=== PATIENT | female | born 1960 | race Caucasian/White ===

== ENCOUNTER 2016-11-27 20:40 | Emergency (ER) | payer OTHER ==
[~2016-11-27] VITALS: Ht 162.6 cm; Wt 84.3 kg
[~2016-11-27 20:40] MED LIST: CELE20TA PO; CETI10 PO; FLUT1SPR9 EACH NARE; MOBI7.5T PO; OMEP20CA5 PO
[2016-11-27 20:52] VITALS: BP 133/79; PULSE 94; RESP 18; TEMP 99.3; O2SAT 95
[2016-11-27 22:43] LABS: EOSINOPHIL % 0.2 % (0.0-4.0); HEMATOCRIT 43.4 % (35.0-46.0); HEMO FLAGS DIFF FINAL; LYMPH % 8.3 % (9.0-44.0); LYMPHOCYTE # 0.6 TH/MM3 (1.0-4.8); MEAN CELL VOLUME 87.1 FL (80.0-100.0); MEAN CORPUSCULAR HEMOGLOBIN 29.2 PG (27.0-34.0); MEAN CORPUSCULAR HGB CONC 33.5 % (32.0-36.0); MONO % 3.3 % (0.0-8.0); NEUT % 88.2 % (16.0-70.0); PLATELET COUNT 207 TH/MM3 (150-450); RED BLOOD COUNT 4.99 MIL/MM3 (4.00-5.30); RED CELL DISTRIBUTION WIDTH 13.4 % (11.6-17.2); WHITE BLOOD COUNT 6.8 TH/MM3 (4.0-11.0)
[2016-11-27] MEDS ORDERED: SODIUM CHLOR 0.9% 1000 ML INJ 1,000 ML IV ONE (22:45)
[2016-11-27] MEDS ORDERED: ONDANSETRON HCL 4 MG/2 ML VIAL IV PUSH ONE (22:45)
[2016-11-27 22:53] VITALS: BP 158/70; PULSE 82; RESP 20; O2SAT 96
[2016-11-27 22:55] VITALS: BP 158/70; PULSE 78; RESP 20; TEMP 100.2; O2SAT 98
[2016-11-27 22:58] LABS: CHLORIDE 107 MEQ/L (98-107); POTASSIUM 3.2 MEQ/L (3.5-5.1); SODIUM (NA) 140 MEQ/L (136-145)
[2016-11-27 23:02] LABS: ANION GAP 5 MEQ/L (5-15); BICARBONATE 27.6 MEQ/L (21.0-32.0); BLOOD UREA NITROGEN 9 MG/DL (7-18)
[2016-11-27] MEDS ORDERED: CETI10CH CHEW (23:03)
[2016-11-27] MEDS ORDERED: TRAM50TA PO (23:03)
[2016-11-27] MEDS ORDERED: CITA20TA4 PO (23:03)
[2016-11-27] MEDS ORDERED: OMEP20TA PO (23:03)
[2016-11-27] MEDS ORDERED: NAPR-701 PO (23:03)
[2016-11-27 23:05] LABS: ALT (GPT) 44 U/L (10-53); AST (GOT) 30 U/L (15-37); GLOMERULAR FILTRATION RATE 76 ML/MIN (>89)
[2016-11-27 23:07] LABS: TOTAL BILIRUBIN ADULT 0.9 MG/DL (0.2-1.0)
[2016-11-27 23:08] LABS: ALKALINE PHOSPHATASE 54 U/L (45-117)
--- NOTE | 2016-11-27 23:11 | PD ---
HPI Chief Complaint: GI Complaint Time Seen by Provider: 22:41 Travel History International Travel<30 days: No Contact w/Intl Traveler<30days: No Traveled to known affect area: No History of Present Illness HPI 56-year-old female presents to the emergency department for complaint of nausea vomiting abdominal pain and diarrhea since approximately 2 AM on Saturday morning. No hematemesis no coffee-ground emesis no melena hematochezia. There is asymptomatic. Patient denies any known dietary indiscretion well ingestion or foreign travel. No coworkers are ill. 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 Patient's had no fever chills. Patient states that abdominal discomfort associated with diarrhea. Patient is unable to identify exacerbating or alleviating factors. PFSH Past Medical History Narrative Medical Arthritis asthma diverticulosis depression GERD colonoscopy hysterectomy; no tobacco use; nursing notes reviewed Arthritis: Yes (OSTEO) Asthma: Yes ( A CHILD) Depression: Yes Diminished Hearing: No GERD: Yes Tetanus Vaccination: Unknown ?: Not LMP: MENOPAUSAL Menopausal: Yes : 2 Para: 2 Past Surgical History Hysterectomy: Yes (PARTIAL ) Social History Alcohol Use: Yes (SOCIALLY) Tobacco Use: No Substance Use: No Allergies-Medications (Allergen,Severity, Reaction): Coded Allergies: No Known Allergies (Verified , 11/27/16) Reported Meds & Prescriptions Reported Meds & Active Scripts Active Reported Citalopram (Citalopram Hydrobromide) 20 Mg Tab 20 Mg PO DAILY Naproxen Sodium 500 Mg Tab 500 Mg PO BID Omeprazole 20 Mg Tab 20 Mg PO DAILY Cetirizine (Cetirizine HCl) 10 Mg Chew 10 Mg CHEW DAILY Tramadol (Tramadol HCl) 50 Mg Tab 50 Mg PO BID PRN Review of Systems Except as stated in HPI: all other systems reviewed are Neg General / Constitutional: No: Fever, Chills HENT: No: Congestion Cardiovascular: No: Chest Pain or Discomfort Respiratory: No: Shortness of Breath Gastrointestinal: Positive: Nausea, Vomiting, Diarrhea, Abdominal Pain Genitourinary: Positive: Decreased Urinary Output, No: Dysuria Musculoskeletal: Positive: Myalgias, Arthralgias Skin: No Rash Neurologic: No: Weakness Psychiatric: No: Anxiety Endocrine: No: Heat Intolerance Hematologic/Lymphatic: No: Easy Bruising Physical Exam Narrative GENERAL: Well-developed well-nourished female in no acute distress no respiratory distress SKIN: Warm and dry. HEAD: Normocephalic. EYES: No scleral icterus. No injection or drainage. NECK: Supple, trachea midline. No JVD or lymphadenopathy. CARDIOVASCULAR: Regular rate and rhythm without murmurs, gallops, or rubs. RESPIRATORY: Breath sounds equal bilaterally. No accessory muscle use. GASTROINTESTINAL: Abdomen soft, non-tender, nondistended. MUSCULOSKELETAL: No cyanosis, or edema. BACK: Nontender without obvious deformity. No CVA tenderness. Data Data Last Documented VS Vital Signs Date Time Temp Pulse Resp B/P Pulse Ox O2 Delivery O2 Flow Rate FiO2 11/27/16 22:55 100.2 78 20 158/70 98 Orders Complete Blood Count With Diff (11/27/16 22:21) Comprehensive Metabolic Panel (11/27/16 22:21) Urinalysis - C+S If Indicated (11/27/16 22:21) Iv Access Insert/Monitor (11/27/16 22:21) Oximetry (11/27/16 22:21) Lipase (11/27/16 22:21) Sodium Chlor 0.9% 1000 Ml Inj (Ns 1000 M (11/27/16 22:45) Ondansetron Inj (Zofran Inj) (11/27/16 22:45) Acetaminophen (Tylenol) (11/27/16 23:15) Potassium Chloride (Kcl) (11/27/16 23:15) Labs Laboratory Tests Test 11/27/16 11/27/16 22:40 23:50 White Blood Count 6.8 TH/MM3 Red Blood Count 4.99 MIL/MM3 Hemoglobin 14.6 GM/DL Hematocrit 43.4 % Mean Corpuscular Volume 87.1 FL Mean Corpuscular Hemoglobin 29.2 PG Mean Corpuscular Hemoglobin 33.5 % Concent Red Cell Distribution Width 13.4 % Platelet Count 207 TH/MM3 Mean Platelet Volume 8.7 FL Neutrophils (%) (Auto) 88.2 % Lymphocytes (%) (Auto) 8.3 % Monocytes (%) (Auto) 3.3 % Eosinophils (%) (Auto) 0.2 % Basophils (%) (Auto) 0.0 % Neutrophils # (Auto) 6.0 TH/MM3 Lymphocytes # (Auto) 0.6 TH/MM3 Monocytes # (Auto) 0.2 TH/MM3 Eosinophils # (Auto) 0.0 TH/MM3 Basophils # (Auto) 0.0 TH/MM3 CBC Comment DIFF FINAL Differential Comment Sodium Level 140 MEQ/L Potassium Level 3.2 MEQ/L Chloride Level 107 MEQ/L Carbon Dioxide Level 27.6 MEQ/L Anion Gap 5 MEQ/L Blood Urea Nitrogen 9 MG/DL Creatinine 0.79 MG/DL Estimat Glomerular Filtration 76 ML/MIN Rate Random Glucose 97 MG/DL Calcium Level 8.3 MG/DL Total Bilirubin 0.9 MG/DL Aspartate Amino Transf 30 U/L (AST/SGOT) Alanine Aminotransferase 44 U/L (ALT/SGPT) Alkaline Phosphatase 54 U/L Total Protein 6.9 GM/DL Albumin 3.4 GM/DL Lipase 106 U/L Urine Color YELLOW Urine Turbidity CLEAR Urine pH 5.5 Urine Specific Anchor 1.008 Urine Protein NEG mg/dL Urine Glucose (UA) NEG mg/dL Urine Ketones NEG mg/dL Urine Occult Blood TRACE Urine Nitrite NEG Urine Bilirubin NEG Urine Leukocyte Esterase NEG Urine RBC 0-3 /hpf Urine WBC 0-2 /hpf Urine Squamous Epithelial 0-5 /hpf Cells Urine Mucus FEW /lpf Microscopic Urinalysis Comment CULT NOT INDICATED MDM Medical Decision Making Medical Screen Exam Complete: Yes Emergency Medical Condition: Yes Medical Record Reviewed: Yes Interpretation(s) CBC & BMP Diagram 11/27/16 22:40 Vital Signs Date Time Temp Pulse Resp B/P Pulse Ox O2 Delivery O2 Flow Rate FiO2 11/27/16 22:55 100.2 78 20 158/70 98 11/27/16 22:53 82 20 158/70 96 11/27/16 20:52 99.3 94 18 133/79 95 Differential Diagnosis Gastroenteritis, viral syndrome, food borne illness, dehydration, electrolyte disturbance, UTI, colitis, diverticulitis Narrative Course IV access obtained specimens collected and sent for 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 Upon reexamination abdomen is soft nontender no guarding or rebound. Patient is tolerating oral hydration well. Patient's temperature is starting to decrease as well. Patient stable for outpatient management and follow-up with primary care provider Sepsis Criteria SIRS Criteria (2 or more): Heart rate over 90 Diagnosis Primary Impression: Gastroenteritis Referrals: Primary Care Physician call for appointment Patient Instructions: General Instructions Departure Forms: Tests/Procedures, Work Release Special Instructions: No work times one day Additional Instructions: Follow clear liquid diet for next 12-24 hours advance as tolerated bland/Justine diet and regular diet Follow-up with your primary care provider call office in a.m. Return to the emergency department for any concerns or change in condition Takes Zofran as prescribed as needed for nausea and/or vomiting Take acetaminophen/Tylenol as needed for fever 100.4F or greater No work times one day Add potassium containing foods and beverages to dietary intake Med/Other Pt SpecificInfo: Prescription(s) given Scripts Ondansetron Odt (Zofran Odt)4 Mg Tab4 Mg SL Q6HR PRN (Nausea/Vomiting) #10 TAB Ref 0 Prov:Abi Valdez MD 11/28/16 Disposition: 01 DISCHARGE HOME Condition: Stable Abi Valdez MD November 27, 2016 23:11
[2016-11-27] MEDS ORDERED: POTASSIUM CHLORIDE 20 MEQ CONTROLLED RELEASE TAB PO ONE (23:15)
[2016-11-27] MEDS ORDERED: ACETAMINOPHEN 325 MG TAB PO ONE (23:15)
[2016-11-27 23:58] LABS: BLOOD, URINE TRACE (NEG); GLUCOSE,URINE NEG (NEG); KETONE, URINE NEG (NEG); NITRITE,URINE NEG (NEG); PH, URINE 5.5 (5.0-8.5)
[2016-11-28 00:11] LABS: URINE COLOR YELLOW (YELLW/STRAW)
[2016-11-28 00:12] LABS: MUCUS URINE FEW /lpf (OCC); RBC, URINE 0-3 /hpf (0-3); SQUAMOUS EPITHELIAL CELL URINE 0-5 /hpf (0-5)
[2016-11-28 00:13] LABS: COMMENT (UR) CULT NOT INDICATED; CULTURE IF INDICATED CULT NOT INDICATED; WBC, URINE 0-2 /hpf (0-5)
[2016-11-28] MEDS ORDERED: ZOFR4TAB3 SL (00:31)
[2016-11-28 01:05] VITALS: BP 121/68
== END 2016-11-28 01:07 | disposition home or self-care (01) ==
LOC: PHED 20:40
DX: K52.9 Noninfective gastroenteritis and colitis, unspecified (principal); M79.1 Myalgia; M19.90 Unspecified osteoarthritis, unspecified site; J45.909 Unspecified asthma, uncomplicated; F32.9 Major depressive disorder, single episode, unspecified; K21.9 Gastro-esophageal reflux disease without esophagitis; Z79.899 Other long term (current) drug therapy
CPT/HCPCS: 80053; 81001; 83690; 85025; 96361; 96374; 99284; J2405; J7030

== ENCOUNTER 2017-06-10 23:37 | Emergency (ER) | payer OTHER ==
[~2017-06-10] VITALS: Ht 162.6 cm; Wt 79.7 kg
[~2017-06-10 23:37] MED LIST changes: -CELE20TA PO; -CETI10 PO; +CETI10CH CHEW; +CITA20TA4 PO; -FLUT1SPR9 EACH NARE; -MOBI7.5T PO; +NAPR-701 PO; -OMEP20CA5 PO; +OMEP20TA93 PO; +TRAM50TA PO; +ZOFR4TAB3 SL
[2017-06-10 23:39] VITALS: BP 153/73; PULSE 82; RESP 16; TEMP 97.9; O2SAT 100
[2017-06-11] MEDS ORDERED: KETOROLAC TROMETHAMINE 30 MG/ML (IVP) VIAL IV PUSH ONE
[2017-06-11] MEDS ORDERED: SODIUM CHLOR 0.9% 1000 ML INJ 1,000 ML IV ONE
[2017-06-11 00:14] VITALS: BP 153/73; PULSE 82; RESP 16; TEMP 97.9; O2SAT 100
[2017-06-11 00:21] LABS: AUTOMATED NEUTROPHIL # 5.4 TH/MM3 (1.8-7.7); BASOPHIL % 0.4 % (0.0-2.0); EOSINOPHIL # 0.2 TH/MM3 (0-0.4); EOSINOPHIL % 2.4 % (0.0-4.0); HEMATOCRIT 34.4 % (35.0-46.0); HEMO FLAGS DIFF FINAL; LYMPH % 26.9 % (9.0-44.0); LYMPHOCYTE # 2.2 TH/MM3 (1.0-4.8); MEAN CELL VOLUME 90.7 FL (80.0-100.0); MEAN CORPUSCULAR HEMOGLOBIN 29.1 PG (27.0-34.0); MEAN CORPUSCULAR HGB CONC 32.1 % (32.0-36.0); MONO % 5.9 % (0.0-8.0); NEUT % 64.4 % (16.0-70.0); PLATELET COUNT 539 TH/MM3 (150-450); RED BLOOD COUNT 3.79 MIL/MM3 (4.00-5.30); RED CELL DISTRIBUTION WIDTH 14.7 % (11.6-17.2); WHITE BLOOD COUNT 8.3 TH/MM3 (4.0-11.0)
[2017-06-11] MEDS ORDERED: PERC7.5T13 PO (00:26)
[2017-06-11] MEDS ORDERED: XARE10TA PO (00:26)
[2017-06-11 00:31] LABS: CHLORIDE 105 MEQ/L (98-107); POTASSIUM 3.7 MEQ/L (3.5-5.1); SODIUM (NA) 141 MEQ/L (136-145)
[2017-06-11 00:35] LABS: ANION GAP 8 MEQ/L (5-15); BICARBONATE 27.6 MEQ/L (21.0-32.0)
[2017-06-11 00:36] LABS: BLOOD UREA NITROGEN 11 MG/DL (7-18)
[2017-06-11 00:38] LABS: ALT (GPT) 19 U/L (10-53)
[2017-06-11 00:39] LABS: AST (GOT) 25 U/L (15-37); GLOMERULAR FILTRATION RATE 94 ML/MIN (>89)
[2017-06-11 00:40] LABS: TOTAL BILIRUBIN ADULT 0.6 MG/DL (0.2-1.0)
[2017-06-11 00:41] LABS: ALKALINE PHOSPHATASE 70 U/L (45-117)
[2017-06-11 01:30] VITALS: BP 126/82; PULSE 77; RESP 16; O2SAT 100
--- NOTE | 2017-06-11 01:34 | PD ---
HPI Chief Complaint: Cold / Flu Symptoms Time Seen by Provider: 23:50 Travel History International Travel<30 days: No Contact w/Intl Traveler<30days: No Traveled to known affect area: No History of Present Illness HPI Patient is a 57 year old female who comes in complaining of bodyaches. She had hip replacement and left hip on May 27. She came in because she was concerned her symptoms might sick no an infection says the surgical site. She says she's having some pain, and that might be a little worse today. She has not noticed any oozing from the wound. She denies any fevers. She says the area might feel a little more swollen than it has been. She last took any pain medicine several hours ago. PFSH Past Medical History Hx Anticoagulant Therapy: Yes (XARELTO) Arthritis: Yes (OSTEO) Asthma: Yes ( A CHILD) Depression: Yes Diminished Hearing: No GERD: Yes Tetanus Vaccination: Unknown Influenza Vaccination: Yes ?: Not Menopausal: Yes : 2 Para: 2 Past Surgical History Hysterectomy: Yes (PARTIAL) Social History Alcohol Use: Yes (SOCIALLY) Tobacco Use: No Substance Use: No Allergies-Medications (Allergen,Severity, Reaction): Coded Allergies: No Known Allergies (Verified Adverse Reaction, Unknown, 06/11/17) Reported Meds & Prescriptions Reported Meds & Active Scripts Active Zofran Odt (Ondansetron Odt) 4 Mg Tab 4 Mg SL Q6HR PRN Reported Percocet (Oxycodone-Acetaminophen) 7.5-325 mg Tab 1 Tab PO Q6H PRN Xarelto (Rivaroxaban) 10 Mg Tab 10 Mg PO DAILY Citalopram (Citalopram Hydrobromide) 20 Mg Tab 20 Mg PO DAILY Naproxen Sodium 500 Mg Tab 500 Mg PO BID Omeprazole 20 Mg Tab 20 Mg PO DAILY Cetirizine (Cetirizine HCl) 10 Mg Chew 10 Mg CHEW DAILY Tramadol (Tramadol HCl) 50 Mg Tab 50 Mg PO BID PRN Review of Systems Except as stated in HPI: all other systems reviewed are Neg General / Constitutional: No: Fever HENT: No: Headaches, Lightheadedness Cardiovascular: No: Chest Pain or Discomfort Respiratory: No: Shortness of Breath Gastrointestinal: No: Nausea, Vomiting, Abdominal Pain Genitourinary: No: Dysuria Musculoskeletal: Positive: Myalgias, Pain Skin: No Change in Pigmentation Neurologic: No: Weakness, Dizziness Physical Exam Narrative GENERAL: Awake and alert, in no acute distress. SKIN: Focused skin assessment warm/dry. Surgical site to left hip is intact, there is no leakage of fluids. No surrounding erythema. No evidence of infection. HEAD: Atraumatic. Normocephalic. EYES: Pupils equal and round. No scleral icterus. ENT: Mucous membranes pink and moist. NECK: Trachea midline. No JVD. CARDIOVASCULAR: Regular rate and rhythm. No murmur appreciated. RESPIRATORY: No accessory muscle use. Clear to auscultation. Breath sounds equal bilaterally. MUSCULOSKELETAL: No obvious deformities. No clubbing. No cyanosis. No edema. NEUROLOGICAL: Awake and alert. No obvious cranial nerve deficits. Motor grossly within normal limits. Normal speech. PSYCHIATRIC: Appropriate mood and affect; insight and judgment normal. Data Data Last Documented VS Vital Signs Date Time Temp Pulse Resp B/P (MAP) Pulse Ox O2 Delivery O2 Flow Rate FiO2 06/11/17 02:05 16 06/11/17 00:18 Room Air 06/11/17 00:14 97.9 82 153/73 (99) 100 Orders Orders Iv Access Insert/Monitor (06/10/17 23:55) Complete Blood Count With Diff (06/10/17 23:55) Comprehensive Metabolic Panel (06/10/17 23:55) C-Reactive Protein (Crp) (06/10/17 23:55) Sodium Chlor 0.9% 1000 Ml Inj (Ns 1000 M (06/11/17 00:00) Ketorolac Inj (Toradol Inj) (06/11/17 00:00) Labs Laboratory Tests Test 06/11/17 00:09 White Blood Count 8.3 TH/MM3 Red Blood Count 3.79 MIL/MM3 Hemoglobin 11.0 GM/DL Hematocrit 34.4 % Mean Corpuscular Volume 90.7 FL Mean Corpuscular Hemoglobin 29.1 PG Mean Corpuscular Hemoglobin Concent 32.1 % Red Cell Distribution Width 14.7 % Platelet Count 539 TH/MM3 Mean Platelet Volume 8.0 FL Neutrophils (%) (Auto) 64.4 % Lymphocytes (%) (Auto) 26.9 % Monocytes (%) (Auto) 5.9 % Eosinophils (%) (Auto) 2.4 % Basophils (%) (Auto) 0.4 % Neutrophils # (Auto) 5.4 TH/MM3 Lymphocytes # (Auto) 2.2 TH/MM3 Monocytes # (Auto) 0.5 TH/MM3 Eosinophils # (Auto) 0.2 TH/MM3 Basophils # (Auto) 0.0 TH/MM3 CBC Comment DIFF FINAL Differential Comment Blood Urea Nitrogen 11 MG/DL Creatinine 0.65 MG/DL Random Glucose 104 MG/DL Total Protein 7.1 GM/DL Albumin 3.1 GM/DL Calcium Level 8.5 MG/DL Alkaline Phosphatase 70 U/L Aspartate Amino Transf (AST/SGOT) 25 U/L Alanine Aminotransferase (ALT/SGPT) 19 U/L Total Bilirubin 0.6 MG/DL Sodium Level 141 MEQ/L Potassium Level 3.7 MEQ/L Chloride Level 105 MEQ/L Carbon Dioxide Level 27.6 MEQ/L Anion Gap 8 MEQ/L Estimat Glomerular Filtration Rate 94 ML/MIN C-Reactive Protein 1.66 MG/DL MDM Medical Decision Making Medical Screen Exam Complete: Yes Emergency Medical Condition: Yes Medical Record Reviewed: Yes Differential Diagnosis Surgical site infection versus inflammation versus viral illness Narrative Course Patient is a 57-year-old female comes in complaining of body aches and concern for surgical site infection. Exam shows no evidence of infection to the area. IV established, labs sent. White blood cell count is within normal limits, there is no left shift. Patient given IV fluids and Toradol. CRP is slightly elevated at 1.66. Patient given prescription for Keflex in case there is slight infection. She is advised to follow-up with Dr. Collazo, her orthopedic surgeon. Advised to return any time for any worsening symptoms. Diagnosis Primary Impression: Myalgia Patient Instructions: General Instructions, Musculoskeletal Pain (ED), Surgical Site Infections (ED) Additional Instructions: Follow-up with Dr. Collazo. Take all the antibiotic. Return to the ED as needed for any worsening symptoms. Scripts Cephalexin (Keflex) 500 Mg Capsule 500 MG PO QID for Infection for 7 Days, CAP 0 Refills Prov: Abida Noyola MD 06/11/17 Disposition: 01 DISCHARGE HOME Condition: Stable Abida Noyola MD Jun 11, 2017 01:34
[2017-06-11 02:05] VITALS: RESP 16
[2017-06-11] MEDS ORDERED: CEPH-460 PO (02:13)
[2017-06-11 02:55] VITALS: BP 128/85
== END 2017-06-11 02:57 | disposition home or self-care (01) ==
LOC: PHED 23:37
DX: M79.1 Myalgia (principal); Z96.642 Presence of left artificial hip joint
CPT/HCPCS: 80053; 85025; 86140; 96361; 96374; 99284; J1885; J7030